=== PATIENT | female | born 1940 | race Caucasian/White ===

== ENCOUNTER → 2017-02-27 | Outpatient (CLI) | payer MEDICARE ==
[~2017-02-27] MED LIST: ASPI-621 PO; OLME20TA19 PO; OMEP-110 PO; SUCR1TAB PO; WARF1TAB PO; WARF6TAB PO
== END | disposition home or self-care (01) ==
LOC: CVU 06:40
PROVIDERS: ATTEND Internal Medicine
DX: I35.8 Other nonrheumatic aortic valve disorders (principal); Q21.1 Atrial septal defect; I10 Essential (primary) hypertension
CPT/HCPCS: 93306